=== PATIENT | female | born 1970 | race Caucasian/White ===

== ENCOUNTER → 2021-03-18 | Outpatient (CLI) | payer BC ==
[~2021-03-18] VITALS: Ht 162.6 cm; Wt 117.0 kg
[~2021-03-18] MED LIST: CELE100C PO; NITR100C PO; OMEP20TA63 PO; PREG150C PO; SPIR100T4 PO
[2021-03-18 09:20] VITALS: BP 147/68
--- NOTE | 2021-03-18 12:16 | PDOC1 ---
INITIAL PAIN CONSULT DATE OF SERVICE: DOS: DATE: 03/18/21 TIME: 12:09 CHIEF COMPLAINT: Chief Complaint: Low back and left lower extremity pain HISTORY OF PRESENT ILLNESS: 51-year-old female presents with history of pain low back left lower extremity for proximally 7 months not resolve with any specific injury or accident that she is aware of but pain in the low back rating left posterior gluteus posterior lateral thigh lateral anterior thigh anteromedial thigh medial lower leg to the ankle and knee and also into the calf on the posterior aspect as well on the left side only. Patient reports intermittent intensity changes during the day worse with walking standing changing position specially getting up from a seated position also driving in the car seems to exacerbate the pain significantly. Patient works where she is required to travel at times several hours in the car at a time and this exacerbated the pain as well. Patient reports it wakes her from sleep least twice a night does not affect her bowel bladder control but can at times affect her ability to walk does not use any assistive devices to ambulate. Patient had physical therapy well for about a month and is currently doing the therapy as well and doing exercises on her own at home patient did have epidural injections from a clinic in [facility] January 20, 2001 and February 10, 2021 which helped for about 2 weeks after the last injection patient is been clinton ing pregabalin also celecoxib and ibuprofen as needed all of which do help and only to a mild extent. Patient rates her disability rating 0-10 10 being the worst is a 4 with family home responsibilities and recreation, to social activity and self-care, for with occupational activities 6 with sexual behavior and 3 of life support activities. Patient had MRI scan lumbar spine dated December 15, 2020 showing mild degenerative spondylosis L2-3 L3-4 L4-5 and L5-S1 with mild disc bulge at L4-5 left greater than right facet arthropathy resulting in mild to moderate bilateral neuroforaminal narrowing without significant spinal canal stenosis. Patient ports a loss of motor function with significant fatigability of the left lower extremity with walking ambulation and sitting for prolonged periods. PAST MEDICAL HISTORY: PMH: Arthritis, recent weight gain PREVIOUS SURGERIES: Past Surgical Hx: Appendectomy, cholecystectomy, breast reduction, polyp removal, bone spur excision, lap band CURRENT MEDICATIONS: Current Meds: Active Scripts Medications Dose Route/Sig Max Daily Dose Days Date Category Prilosec Otc (Omeprazole Magnesium) 20 Mg Tablet. 1 Tab PO DAILY 30 03/18/21 Reported Nitrofurantoin (Nitrofurantoin Macrocrystal) 100 Mg Capsule 1 Cap PO BID 7 03/18/21 Reported Celebrex (Celecoxib) 100 Mg Capsule 1 Cap PO BID 03/18/21 Reported Lyrica (Pregabalin) 150 Mg Capsule 1 Cap PO BID 03/18/21 Reported Spironolactone 100 Mg Tablet 1 Tab PO DAILY 03/18/21 Reported FAMILY HISTORY: Family Hx: Heart disease in patient's father and esophageal cancer in patient's father SOCIAL HISTORY: Social Hx: Patient drinks alcohol only occasionally does not smoke or use any illegal illicit or recreational drugs is single lives locally in [place] and 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 PHYSICAL EXAM: VS: Blood pressure is 142/96, weight is 256 pounds Vital Signs Date Time Temp Pulse Resp B/P (MAP) Pulse Ox O2 Delivery O2 Flow Rate FiO2 03/18/21 09:20 98.4 62 18 100 98.4 PE: PHYSICAL EXAMINATION: GENERAL: The patient is awake, alert, oriented, appropriate, very pleasant in demeanor. HEENT: Shows normocephalic, atraumatic. Extraocular movements are intact and symmetrical. Oral cavity: Mucous membranes moist and pink. Dentition is intact. NECK: Shows anterior throat supple without palpable lymphadenopathy noted. Swallow reflex symmetrical. CHEST: Shows normal on inspection. Breath sounds are clear bilaterally, no rales rhonchi wheezes auscultated. HEART: Shows S1, S2 clear. No murmurs auscultated. ABDOMEN: Soft, nontender, nondistended, obese. No palpable organomegaly is noted. No rebound or guarding demonstrated. BACK: Shows spine grossly in the midline. Normal-appearing cervical lordotic curvature. There is slightly increased thoracic kyphosis, some minor flattening of the lumbar lordotic curvature. Lumbar paraspinous muscles show symmetrical on inspection, on palpation shows some moderate tenderness diffusely throughout the upper, middle and lower distribution of the paraspinous muscles bilaterally and also into the lower thoracic paraspinous musculature, firm and tender, but without specific trigger points, without radiation of pain. The patient has good rotational motion of the lumbar spine, both laterally as well as extension and flexion without significant difficulty. No tenderness over the spinous processes, sacrum or sacroiliac regions. EXTREMITIES: Lower extremities show deep tendon reflexes 2+ in the patellar and tendo calcaneus tendons. Motor exam is 5 on a scale of 5 with right dorsif lexion, extension, quadriceps and hamstring flexion and 5/5 on the left. Peripheral pulses are 1 posterior tibial. No peripheral edema is noted bilaterally. Lower extremities are warm and dry to touch, equal in color and appearance. Straight leg raise noted to be positive on the left at approximate 45 degrees decreased with knee flexion, right side is negative. Gaenslen's and Yousif's maneuvers are negative bilaterally as well. The patient is able to stand, stand on her toes that significant difficulty loss of balance, walks with a normal-appearing gait does not appear to favor the right or left lower extremity significantly does not use any assistive devices to ambulate. SKIN: Shows warm and dry, good turgor. No edema. No sores, rashes or bruising throughout. IMPRESSION: Impression: 51-year-old female with proximate 7-month history increasing pain low back left lower extremity radicular fashion. MRI scan lumbar spine as noted Arthritis Plan: Options were discussed with the patient including conservative medical management continued physical therapies and interventional techniques. Patient would like to pursue interventional techniques. We discussed a transforaminal left L4-5 epidural steroid injection using description as well as anatomical models to describe the procedure. Patient would like to proceed. We will wait for preauthorization with patient's insurance provider, once his confirmed we will have her return for left-sided L4-5 transforaminal epidural steroid injection at that time with fluoroscopic guidance. The meantime, patient will continue with physical therapy exercises strengthening stretching and oral analgesics. JONATHAN CONTI MD Mar 18, 2021 12:16
== END | disposition home or self-care (01) ==
LOC: PNCL 08:33
PROVIDERS: ATTEND Anesthesiology
DX: M54.5 Low back pain (principal); M79.605 Pain in left leg; M19.90 Unspecified osteoarthritis, unspecified site; E66.9 Obesity, unspecified; K21.9 Gastro-esophageal reflux disease without esophagitis; Z90.49 Acquired absence of other specified parts of digestive tract; Z87.440 Personal history of urinary (tract) infections; Z98.890 Other specified postprocedural states; Z79.899 Other long term (current) drug therapy; Z82.49 Family history of ischemic heart disease and other diseases of the circulatory system
CPT/HCPCS: 99214; G0463

== ENCOUNTER → 2021-03-26 | Outpatient (CLI) | payer BC ==
[2021-03-18 09:20] VITALS: BP 147/68
[~2021-03-26] MED LIST changes: +BUPIVACAINE MPF 0.25% 10 ML VIAL. ONE; +IOHEXOL 180 MG/ML 10 ML VIAL. ONE; +methylPREDNISolone ACETATE 80 MG/ML VIAL. ONE
--- NOTE | 2021-03-26 12:48 | PDOC4 ---
Procedure Note: Procedure Note: Patient was consented for left L4-5 transforaminal epidural steroid injection with fluoroscopic guidance. Risks were discussed including but not limited to: Bleeding, infection, possibility of epidural hematoma and subsequent neurological compromise, dural puncture, headaches, spinal cord and/or nerve damage, side effects of steroid medication, potential injection into the vertebral arteries at level and permanent ischemic damage, and poor results regarding pain control. Patient understands and wished to proceed. Under sterile prep and drape patient was placed in prone position using C-arm fluoroscopic guidance to identify the L4-5 distribution oblique and slightly cephalad angled C arm. The left L4-5 target was identified and using lidocaine for anesthetizing the skin 22-gauge Kayli pencil point needle was then used to enter the skin and into the subcutaneous tissues using direct C-arm fluoroscopic guidance to guide the needle into the transforaminal aspect of the left L4-5 vertebrae this was confirmed with lateral views showing the needle tip in the superior aspect of the paravertebral region. Aspiration was noted to be negative, -1.5 cc of contrast was then injected with good spread both medially into the epidural space as well as laterally along the nerve root without uptake and without distribution and uptake on digital subtraction. At this time, a solution containing 2 cc of 0.25% bupivacaine and 80 mg of Depo-Medrol was then injected. Needle was withdrawn and sterile bandage was applied. Patient tolerated procedure well had no immediate complications JONATHAN CONTI MD Mar 26, 2021 12:48
--- NOTE | 2021-03-26 12:48 | PDOC ---
Progress Note - Pain Clinic Date of Service: DOS: DATE: 03/26/21 TIME: 12:44 Diagnosis: Dx: Lumbar radiculopathy with lumbar degenerative disc disease History or Present Illness: HPI: 51-year-old female returns for follow-up status post initial evaluation preauthorization for left lumbar transforaminal L4 5 injection. Patient reports still significant pain in the low back left lower extremities actually gotten worse in the posterior gluteus lateral thigh anterior thigh medial thigh and more pronounced in the left lower leg in the anterior aspect of the lower leg and some in the calf as well. Patient reports is worse with walking standing changing positions sitting for prolonged periods better with sitting or laying down generally does not awaken her from sleep at night. Patient reports she has been taking [id number] ibuprofen is recently switched this to naproxen as it seems to help the pain slightly better still only about 10% reduction overall. Patient reports her pain is eight on scale ten is worse over the past week 5-6 on average for its least is a five today. Patient scribes aching and dull tingling shooting radiating and can be constant with weightbearing. Patient reports no new motor or sensory deficits no bowel or bladder incontinence. Physical Exam: VS: Blood pressure is 129/81 pulse seventy respirations eighteen temperature 98.8 F height 5 feet 4 inches weight is 254 pounds PE: PHYSICAL EXAMINATION: GENERAL: The patient is awake, alert, oriented, appropriate, very pleasant in demeanor. HEENT: Shows normocephalic, atraumatic. Extraocular movements are intact and symmetrical. NECK: Shows anterior throat supple without palpable lymphadenopathy noted. Swallow reflex symmetrical. CHEST: Shows normal on inspection. Breath sounds are clear bilaterally, no rales or rhonchi. HEART: Shows S1, S2 clear. No murmurs auscultated. ABDOMEN: Soft, nontender, nondistended, obese. No palpable organomegaly is noted. No rebound or guarding demonstrated. BACK: Shows spine grossly in the midline. Normal-appearing cervical lordotic curvature. There is slightly increased thoracic kyphosis, some minor flattening of the lumbar lordotic curvature. Lumbar paraspinous muscles show symmetrical on inspection, on palpation shows some moderate tenderness diffusely throughout the upper, middle and lower distribution of the paraspinous muscles without specific trigger points, without radiation of pain. The patient has good rotational motion of the lumbar spine, both laterally as well as extension and flexion without significant difficulty. EXTREMITIES: Lower extremities show deep tendon reflexes 2+ in the patellar and tendo calcaneus tendons. Motor exam is five on a scale of 5 with right dorsiflexion, extension, quadriceps and hamstring flexion and five/5 on the left. Peripheral pulses are 1+ posterior tibial. No peripheral edema is noted bilaterally. Lower extremities are warm and dry to touch, equal in color and appearance. SKIN: Shows warm and dry, good turgor. No edema. No sores, rashes or bruising throughout. Procedure: Procedure: Options were discussed with the patient. Patient chart reviews her current medication regimen updated current review of systems updated today as well. We will proceed with a left L4-5 transforaminal epidural steroid injection with fluoroscopic guidance. Risks were discussed including but not limited to: Bleeding, infection, possibility of epidural hematoma and subsequent neurological compromise, dural puncture, headaches, spinal cord and/or nerve damage, potential injection of the vertebral artery at that level and permanent ischemic damage, side effects of steroid medication, and poor results regarding pain control. Patient understands and wished to proceed. Patient will return to clinic in approximate 2 weeks for follow-up was counseled as to return appointment activity level and side effects to be aware of. Medication Injected: Med Injected: Under sterile prep and drape patient was placed in prone position using C-arm fluoroscopic guidance to identify the L4-5 distribution oblique and slightly c ephalad angled C arm. The left L4-5 target was identified and using lidocaine for anesthetizing the skin 22-gauge Kayli pencil point needle was then used to enter the skin and into the subcutaneous tissues using direct C-arm fluoroscopic guidance to guide the needle into the transforaminal aspect of the left L4-5 vertebrae this was confirmed with lateral views showing the needle tip in the superior aspect of the paravertebral region. Aspiration was noted to be negative, -1.5 cc of contrast was then injected with good spread both medially into the epidural space as well as laterally along the nerve root without uptake and without distribution and uptake on digital subtraction. At this time, a solution containing 2 cc of 0.25% bupivacaine and 80 mg of Depo-Medrol was then injected. Needle was withdrawn and sterile bandage was applied. Patient tolerated procedure well had no immediate complications Condition at Discharge: Condition at Discharge: Condition at discharge stable, patient alert the procedure well and had no complications. JONATHAN CONTI MD Mar 26, 2021 12:48
== END | disposition home or self-care (01) ==
LOC: PNCL 11:28
PROVIDERS: ATTEND Anesthesiology
DX: M51.16 Intervertebral disc disorders with radiculopathy, lumbar region (principal); E66.9 Obesity, unspecified; K21.9 Gastro-esophageal reflux disease without esophagitis; Z90.49 Acquired absence of other specified parts of digestive tract; Z98.890 Other specified postprocedural states; Z79.899 Other long term (current) drug therapy
CPT/HCPCS: 64483; J1040; J3490; Q9965

== ENCOUNTER → 2021-04-30 | Outpatient (CLI) | payer BC ==
[2021-03-18 09:20] VITALS: BP 147/68
[~2021-04-30] MED LIST changes: -BUPIVACAINE MPF 0.25% 10 ML VIAL. ONE; -IOHEXOL 180 MG/ML 10 ML VIAL. ONE; -methylPREDNISolone ACETATE 80 MG/ML VIAL. ONE
--- NOTE | 2021-04-30 10:17 | PDOC ---
Progress Note - Pain Clinic Date of Service: DOS: DATE: 04/30/21 TIME: 10:13 Diagnosis: Dx: Lumbar radiculopathy with lumbar degenerative disc disease History or Present Illness: HPI: 51-year-old female returns for follow-up status post left L4-5 transforaminal injection x1. Patient reports near 100% improvement after the injection. Patient had the injection on March 26, 2021 and reports that after a few days the pain was completely gone patient reports he is able to walk normally now travel with greater ease and comfort doing household activities work activities sleeping better at night patient reports does not awaken her from sleep patient reports she is very happy that mainly she is walking normally patient reports over a few weeks the pain had some minor return only in the mornings and the left hip and lateral thigh but when she stretches out in the morning and starts to exercise and then get going the pain is resolved patient reports her pain is a 2 on scale 10 is worse over the past week 1 on average 1 its least is a 1 today patient reports only a dull ache in the morning in the left back and left leg as described. Patient reports otherwise doing well no new motor or sensory deficits no bowel or bladder incontinence. Physical Exam: VS: Blood pressure is 135/98 pulse 73 respirations 16 temperature is 98.3 F height is 5 feet 4 inches weight is 258 pounds PE: PHYSICAL EXAMINATION: GENERAL: The patient is awake, alert, oriented, appropriate, very pleasant in demeanor HEENT: Shows normocephalic, atraumatic. Extraocular movements are intact and symmetrical. Oral cavity: Mucous membranes moist and pink. NECK: Shows anterior throat supple without palpable lymphadenopathy noted. Swallow reflex symmetrical. CHEST: Shows normal on inspection. Breath sounds are clear bilaterally, no rales rhonchi wheezes. HEART: Shows S1, S2 clear. No murmurs auscultated. ABDOMEN: Soft, nontender, nondistended, obese. No palpable organomegaly is noted. BACK: Shows spine grossly in the midline. Normal-appearing cervical lordotic curvature. There is slightly increased thoracic kyphosis, some minor flattening of the lumbar lordotic curvature. Lumbar paraspinous muscles show symmetrical on inspection, on palpation shows some moderate tenderness diffusely throughout the upper, middle and lower distribution of the paraspinous muscles, but without specific trigger points, without radiation of pain. The patient has good rotational motion of the lumbar spine, both laterally as well as extension and flexion without significant difficulty. EXTREMITIES: Lower extremities show deep tendon reflexes 2+ in the patellar and tendo calcaneus tendons. Motor exam is 5 on a scale of 5 with right dorsiflexion, extension, quadriceps and hamstring flexion and 5/5 on the left. Peripheral pulses are 1 posterior tibial. No peripheral edema is noted bilaterally. Lower extremities are warm and dry. SKIN: Shows warm and dry, good turgor. No edema. No sores, rashes or bruising throughout. Procedure: Procedure: Options discussed with patient. Patient's old chart was reviewed as her current medication regimen updated current review of systems updated today as well. We will hold on any further injections at this time as patient doing much better and like to wait on any further injections. Patient is encouraged to increase her activity as tolerated, and maintain stretching strength exercises as well. Patient will follow up at this time on as-needed basis. Medication Injected: Med Injected: None Condition at Discharge: Condition at Discharge: Condition at discharge is stable. JONATHAN CONTI MD Apr 30, 2021 10:16
== END | disposition home or self-care (01) ==
LOC: PNCL 09:40
PROVIDERS: ATTEND Anesthesiology
DX: M51.16 Intervertebral disc disorders with radiculopathy, lumbar region (principal); E66.9 Obesity, unspecified; K21.9 Gastro-esophageal reflux disease without esophagitis; Z90.49 Acquired absence of other specified parts of digestive tract; Z98.890 Other specified postprocedural states; Z79.899 Other long term (current) drug therapy
CPT/HCPCS: 99212; G0463

== ENCOUNTER → 2022-01-12 | Outpatient (CLI) | payer BC ==
[2021-03-18 09:20] VITALS: BP 147/68
--- NOTE | 2022-01-12 16:25 | KCIC ---
Ultrasound pelvis complete HISTORY: Pelvic pain for 1.5 months Sonographic examination of the pelvis was performed by transabdominal technique. Multiple static imag es were obtained. The uterus measures 8.3 x 5.6 x 3.8 cm. The endometrium measures 5.6 cm in thickness. The ovaries have normal blood flow bilaterally. The greater for cerebral lumbar 2.2 x 2.5 cm. The lef t ovary measures 3.7 x 4.7 x 3.3 cm. There is a 2.4 x 3.1 x 2.7 cm cyst in the left ovary. IMPRESSION: 1. Small cyst left ovary. 2. No suspicious findings. This interpretation assumes the patient is not . Electronically signed by: Arcadio Lobato III, MD (01/12/2022 4:23 PM) [facility]
== END ==
LOC: KCIC US 12:25
PROVIDERS: ATTEND Nurse Practitioner Family
DX: N83.202 Unspecified ovarian cyst, left side (principal)
CPT/HCPCS: 76856